=== PATIENT | male | born 1975 | race Caucasian/White ===

== ENCOUNTER 2018-07-19 06:58 | Emergency (ER) | payer SELFPAY ==
[2018-07-19 07:03] VITALS: BP 130/92; PULSE 78; RESP 16; TEMP 36.5; O2SAT 99
--- NOTE | 2018-07-19 07:14 | W.ED.GENAD ---
Discharge Plan Disposition Patient Disposition: HOME Condition: Stable Discharge Details Chief Complaint: RespSymp Clinical Impression: Fever, URI (upper respiratory infection), Cough Primary Care Provider: Stephanie Fish ED Provider: Ruth Adams Home Meds and New Rx's Prescriptions: New doxycycline hyclate 100 mg tablet 100 mg PO BID 7 Days Qty: 14 RF: 0 Continue lisinopril 5 MG tablet 10 mg PO HS RF: 0 ibuprofen 600 MG tablet 600 mg PO Q6H PRN PRNQty: 60 RF: 0 acetaminophen [Mapap Extra Strength] 500 MG tablet 1,000 mg PO Q6H PRN PRNQty: 30 RF: 1 aspirin [Extra Strength Margaret] 500 MG tablet 500 mg PO DIRECTED PRNRF: 0 Discharge Instructions Instructions: Fever in Adults (ED), Upper Respiratory Infection (ED), Acute Cough (ED) Additional Instructions: Drink plenty of fluids and get plenty of rest. Alternate Tylenol and Motrin as needed and directed for pain. Try [id number] cough and cold medicine as needed and directed. If you have no relief in symptoms in the next 2 days, you may start the antibiotics. Follow-up with your primary care doctor in 1 week for reevaluation. Return to the emergency department immediately for any worsening or new concerning symptoms. Discharge Data Discharge Physician: Ruth Adams Medical Decision Making 42 yo M with a history of hypertension who presents with fever, rhinorrhea with clear discharge, and cough with yellow white sputum for the past 3 days. Afebrile here. Patient appears nontoxic. Speaking in full sentences and in no acute respiratory distress. Normal ENT exam. Lungs clear to auscultation. Discussed with patient that his symptoms are likely viral in nature and recommend symptomatic treatment with Tylenol, Motrin, [id number] cough and cold medicine. States his has the same symptoms and she was recently given an antibiotic. Discussed that if his symptoms do not improve or worsen over the next 2-3 days, he may start the antibiotics. He was instructed to follow-up with his primary care doctor in 1 week for reevaluation and return here if worse. HPI General Mode of arrival: ambulatory. Date/Time Provider Initiated Documentation: 07/19/18 07:03. Limitations to Documentation: no limitations. Information obtained by: patient. HPI Narrative: Patient is a 42-year-old male who presents to the ED with a complaint of runny nose, cough, and fevers for the past 3 days. Patient states his nasal discharge has been clear and his sputum has been yellow and white. Patient states he coughed once yesterday and it was blood-tinged but not since then. T-max of 103 last night. States he has been alternating Tylenol and Motrin for fever and taking Coricidin [id number] for his cold symptoms. States his was recently diagnosed with bronchitis and started on an antibiotic. Patient denies sore throat, chest pain or shortness of breath. Past medical history: HTN Surgical history: Inguinal hernia repair Social history: denies tobacco, alcohol or drugs Meds: See list Allergies: PCN Related Data Home Medications Medication Instructions Recorded Confirmed lisinopril 10 mg PO HS 02/21/13 11/22/16 aspirin [Extra Strength Margaret] 500 mg PO DIRECTED PRN 10/28/16 07/19/18 acetaminophen [Mapap Extra 1,000 mg PO Q6H PRN PRN #30 tab 11/22/16 07/19/18 Strength] ibuprofen 600 mg PO Q6H PRN PRN #60 tablet 11/22/16 07/19/18 doxycycline hyclate 100 mg PO BID 7 Days #14 tab 07/19/18 Previous Rx's Medication Instructions Recorded acetaminophen [Mapap Extra 1,000 mg PO Q6H PRN PRN #30 tab 11/22/16 Strength] ibuprofen 600 mg PO Q6H PRN PRN #60 tablet 11/22/16 doxycycline hyclate 100 mg PO BID 7 Days #14 tab 07/19/18 Allergies Allergy/AdvReac Type Severity Reaction Status Date / Time Penicillins AdvReac Intermediate Skin Rash Unverified 07/19/18 07:14 General Stated Complaint: RespSymp ZOILA: 4 Review of Systems Review of Systems All systems reviewed & are unremarkable except as noted in HPI and below Constitutional Reports as per HPI, Denies chills and Reports fever(s) Eyes Denies blurry vision ENT Denies dizziness, Reports nasal discharge, Denies sore throat and Denies throat swelling Cardiovascular Denies chest pain and Denies dyspnea Respiratory Reports cough and Denies dyspnea Gastrointestinal Denies abdominal pain, Denies diarrhea and Denies vomiting Genitourinary Denies hematuria and Denies dysuria Musculoskeletal Denies back pain and Denies numbness Integumentary/Breasts Denies lesions and Denies rash Neurologic Denies dizziness and Denies numbness Allergic/Immunologic Denies throat swelling [facility] Medical History Hypertension Impaired fasting glucose Right inguinal hernia Social History Smoking/Tobacco Use Status: Never Surgical History Repair of inguinal hernia (11/22/16) Exam Const General: cooperative and healthy appearing Orientation: alert and awake HENMT Head: normal to inspection Ears: hearing grossly normal bilaterally, external ears normal and TM's normal bilaterally General nose exam: external nose normal Face and sinus: normal facial exam and sinuses nontender Mouth: oral mucosae normal Throat: posterior oropharynx normal Eyes General: appearance normal, both eyes and all related structures Eyelids: eyelids normal EOM: EOM intact bilaterally Neck Neck: normal visual inspection Lymphatic: no lymphadenopathy noted Chest Chest: normal inspection of the chest Resp Effort & Inspection: normal respiratory effort and able to speak in complete sentences Auscultation: clear to auscultation bilaterally Cardio Rate: regular rate Rhythm: regular rhythm GI Inspection: normal to inspection Skin General skin exam: no rashes or lesions noted Neuro General: alert and awake Cognition: normal cognition Speech: speech normal Gait: normal gait Motor: muscle tone normal throughout Sensory Exam: no sensory deficits noted Extrem General: full ROM Psych Appearance: grossly normal Mental Status: mental status grossly normal Speech and Movement: speech and movement normal Affect: normal affect Thought Process: normal Course Vital Signs Temperature 97.7 F 07/19/18 07:03 Pulse 78 07/19/18 07:03 Respiratory Rate 16 07/19/18 07:03 Blood Pressure 130/92 H 07/19/18 07:03 Pulse Oximetry 99 07/19/18 07:03 Temperature 97.7 F 07/19/18 07:03 Temperature Source Temporal Artery Scan 07/19/18 07:03 Pulse 78 07/19/18 07:03 Respiratory Rate 16 07/19/18 07:03 Respiratory Effort Non-Labored 07/19/18 07:09 Respiratory Depth Normal 07/19/18 07:09 Blood Pressure 130/92 H 07/19/18 07:03 Blood Pressure Position Sitting 07/19/18 07:03 Pulse Oximetry 99 07/19/18 07:03 Oxygen Delivery Method Room Air 07/19/18 07:03 Oxygen Flow Rate 0 07/19/18 07:03 Pain Level 0 07/19/18 07:03
--- NOTE | 2018-07-19 07:18 | ED.GENADUL_ITS ---
Discharge Plan Disposition Patient Disposition: HOME Condition: Stable Discharge Details Chief Complaint: RespSymp Clinical Impression: Fever, URI (upper respiratory infection), Cough Primary Care Provider: Stephanie Fish ED Provider: Ruth Adams Home Meds and New Rx's Prescriptions: New doxycycline hyclate 100 mg tablet 100 mg PO BID 7 Days Qty: 14 RF: 0 Continue lisinopril 5 MG tablet 10 mg PO HS RF: 0 ibuprofen 600 MG tablet 600 mg PO Q6H PRN PRNQty: 60 RF: 0 acetaminophen [Mapap Extra Strength] 500 MG tablet 1,000 mg PO Q6H PRN PRNQty: 30 RF: 1 aspirin [Extra Strength Margaret] 500 MG tablet 500 mg PO DIRECTED PRNRF: 0 Discharge Instructions Instructions: Fever in Adults (ED), Upper Respiratory Infection (ED), Acute Cough (ED) Additional Instructions: Drink plenty of fluids and get plenty of rest. Alternate Tylenol and Motrin as needed and directed for pain. Try over-the- counter cough and cold medicine as needed and directed. If you have no relief in symptoms in the next 2 days, you may start the antibiotics. Follow-up with your primary care doctor in 1 week for reevaluation. Return to the emergency department immediately for any worsening or new concerning symptoms. Discharge Data Discharge Physician: Ruth Adams Medical Decision Making 42 yo M with a history of hypertension who presents with fever, rhinorrhea with clear discharge, and cough with yellow white sputum for the past 3 days. Afebrile here. Patient appears nontoxic. Speaking in full sentences and in no acute respiratory distress. Normal ENT exam. Lungs clear to auscultation. Discussed with patient that his symptoms are likely viral in nature and recommend symptomatic treatment with Tylenol, Motrin, [id number] cough and cold medicine. States his has the same symptoms and she was recently given an antibiotic. Discussed that if his symptoms do not improve or worsen over the next 2-3 days, he may start the antibiotics. He was instructed to follow-up with his primary care doctor in 1 week for reevaluation and return here if worse. HPI General Mode of arrival: ambulatory . Date/Time Provider Initiated Documentation: 07/19/18 07:03 . Limitations to Documentation: no limitations . Information obtained by: patient . HPI Narrative: Patient is a 42-year-old male who presents to the ED with a complaint of runny nose, cough, and fevers for the past 3 days. Patient states his nasal discharge has been clear and his sputum has been yellow and white. Patient states he coughed once yesterday and it was blood-tinged but not since then. T-max of 103 last night. States he has been alternating Tylenol and Motrin for fever and taking Coricidin [id number] for his cold symptoms. States his was recently diagnosed with bronchitis and started on an antibiotic. Patient denies sore throat, chest pain or shortness of breath. Past medical history: HTN Surgical history: Inguinal hernia repair Social history: denies tobacco, alcohol or drugs Meds: See list Allergies: PCN Related Data Home Medications Medication Instructions Recorded Confirmed lisinopril 10 mg PO HS 02/21/13 11/22/16 aspirin [Extra Strength Margaret] 500 mg PO DIRECTED PRN 10/28/16 07/19/18 acetaminophen [Mapap Extra 1,000 mg PO Q6H PRN PRN #30 tab 11/22/16 07/19/18 Strength] ibuprofen 600 mg PO Q6H PRN PRN #60 tablet 11/22/16 07/19/18 doxycycline hyclate 100 mg PO BID 7 Days #14 tab 07/19/18 Previous Rx's Medication Instructions Recorded acetaminophen [Mapap Extra 1,000 mg PO Q6H PRN PRN #30 tab 11/22/16 Strength] ibuprofen 600 mg PO Q6H PRN PRN #60 tablet 11/22/16 doxycycline hyclate 100 mg PO BID 7 Days #14 tab 07/19/18 Allergies Allergy/AdvReac Type Severity Reaction Status Date / Time Penicillins AdvReac Intermediate Skin Rash Unverified 07/19/18 07:14 General Stated Complaint: RespSymp ZOILA: 4 Review of Systems Review of Systems All systems reviewed & are unremarkable except as noted in HPI and below Constitutional Reports as per HPI, Denies chills and Reports fever(s) Eyes Denies blurry vision ENT Denies dizziness, Reports nasal discharge, Denies sore throat and Denies throat swelling Cardiovascular Denies chest pain and Denies dyspnea Respiratory Reports cough and Denies dyspnea Gastrointestinal Denies abdominal pain, Denies diarrhea and Denies vomiting Genitourinary Denies hematuria and Denies dysuria Musculoskeletal Denies back pain and Denies numbness Integumentary/Breasts Denies lesions and Denies rash Neurologic Denies dizziness and Denies numbness Allergic/Immunologic Denies throat swelling [facility] Medical History Hypertension Impaired fasting glucose Right inguinal hernia Social History Smoking/Tobacco Use Status: Never Surgical History Repair of inguinal hernia (11/22/16) Exam Const General: cooperative and healthy appearing Orientation: alert and awake HENMT Head: normal to inspection Ears: hearing grossly normal bilaterally, external ears normal and TM's normal bilaterally General nose exam: external nose normal Face and sinus: normal facial exam and sinuses nontender Mouth: oral mucosae normal Throat: posterior oropharynx normal Eyes General: appearance normal, both eyes and all related structures Eyelids: eyelids normal EOM: EOM intact bilaterally Neck Neck: normal visual inspection Lymphatic: no lymphadenopathy noted Chest Chest: normal inspection of the chest Resp Effort & Inspection: normal respiratory effort and able to speak in complete sentences Auscultation: clear to auscultation bilaterally Cardio Rate: regular rate Rhythm: regular rhythm GI Inspection: normal to inspection Skin General skin exam: no rashes or lesions noted Neuro General: alert and awake Cognition: normal cognition Speech: speech normal Gait: normal gait Motor: muscle tone normal throughout Sensory Exam: no sensory deficits noted Extrem General: full ROM Psych Appearance: grossly normal Mental Status: mental status grossly normal Speech and Movement: speech and movement normal Affect: normal affect Thought Process: normal Course Vital Signs Temperature 97.7 F 07/19/18 07:03 Pulse 78 07/19/18 07:03 Respiratory Rate 16 07/19/18 07:03 Blood Pressure 130/92 H 07/19/18 07:03 Pulse Oximetry 99 07/19/18 07:03 Temperature 97.7 F 07/19/18 07:03 Temperature Source Temporal Artery Scan 07/19/18 07:03 Pulse 78 07/19/18 07:03 Respiratory Rate 16 07/19/18 07:03 Respiratory Effort Non-Labored 07/19/18 07:09 Respiratory Depth Normal 07/19/18 07:09 Blood Pressure 130/92 H 07/19/18 07:03 Blood Pressure Position Sitting 07/19/18 07:03 Pulse Oximetry 99 07/19/18 07:03 Oxygen Delivery Method Room Air 07/19/18 07:03 Oxygen Flow Rate 0 07/19/18 07:03 Pain Level 0 07/19/18 07:03
== END 2018-07-19 07:37 | disposition home or self-care (01) ==
PROVIDERS: Emergency Provider Physician Assistant; PCP Family Medicine
DX: R50.9 Fever, unspecified (principal); J06.9 Acute upper respiratory infection, unspecified; R05 Cough; I10 Essential (primary) hypertension
CPT/HCPCS: 99283

== ENCOUNTER 2019-09-18 18:59 | Emergency (ER) | payer OTHER, SELFPAY ==
[2019-09-18 19:09] VITALS: BP 127/91; PULSE 86; RESP 18; TEMP 36.6; O2SAT 98
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
--- NOTE | 2019-09-18 20:51 | DI.VRAD_ITS ---
PROCEDURE INFORMATION: Exam: XR Chest, 2 Views Exam date and time: 09/18/2019 8:44 PM Age: 44 years old Clinical indication: Chest pain; Type not specified; Additional info: Struck with tailgate of truck TECHNIQUE: Imaging protocol: XR of the chest Views: 2 views. COMPARISON: No relevant prior studies available. FINDINGS: Lungs: Left basilar streaky opacity consistent with atelectasis. Lungs are otherwise clear. Pleural space: Unremarkable. No pleural effusion. No pneumothorax. Heart/Mediastinum: Unremarkable. No cardiomegaly. Bones/joints: Unremarkable. IMPRESSION: No acute cardiopulmonary process. Dictated and Authenticated by: Agus Ace MD. Ordering:LOI Capellan MD
[2019-09-18] MEDS: Omnipaque 350 MG/ML 100 ML BTL IJ (22:30)
--- NOTE | 2019-09-18 22:31 | DI.CT_ITS ---
EXAM: CT CHEST/ABD/PEL W CLINICAL HISTORY: pain, crushed b/w truck and tailgate r/o trauma TECHNIQUE: COMPARISON: No exams were available for comparison FINDINGS: CT examination of the chest abdomen and pelvis was performed with bolus infusion of 100 cc of Omnipaq ue 350. No fracture seen involving the bony thorax. No mediastinal hematoma or vascular injury. Heather ngs are clear with this mild bibasilar atelectasis or scarring. Tracheo bronchial tree appears intac t. No pleural effusion. No pneumothorax. No adenopathy. Left L1 transverse process fracture noted. No other fracture identified on scanning of the abdomen p kenn. No vascular injury identified on scanning of the abdomen pelvis. Adrenals and kidneys are unremarkab le except for left renal cysts. No evidence of renal cortical injury. Poorly defined area of decrea sed attenuation involving left hepatic lobe is suspicious for contusion. No gross Jackie hepatic fluid collection but there is moderate amount of fluid in the pelvis. Spleen appears normal. No focal ivan wel pathology identified. Pancreas appears normal. Gallbladder and bile ducts are unremarkable. Mi ld enlargement portal lymph nodes, measuring up to about 15 millimeters in diameter. IMPRESSION: indeterminate findings involving left hepatic lobe, this may represent contusion. Free fluid noted in the pelvis. Follow-up scanning recommended. Nondisplaced fracture transverse process of L1 vertebra on the left.
--- NOTE | 2019-09-18 23:03 | DI.VRAD_ITS ---
PROCEDURE INFORMATION: Exam: CT Chest With Contrast Exam date and time: 09/18/2019 9:41 PM Age: 44 years old Clinical indication: Pain; Other: Back; Prior surgery; Surgery date: 6+ months; Surgery type: Right hernia repair; Additional info: Pain, crushed b/w truck and tailgate, R/O trauma TECHNIQUE: Imaging protocol: Computed tomography of the chest with intravenous contrast. Radiation optimization: All CT scans at this facility use at least one of these dose optimization techniques: automated exposure control; mA and/or kV adjustment per patient size (includes targeted exams where dose is matched to clinical indication); or iterative reconstruction. Contrast material: [id number]; Contrast volume: 100 ml; Contrast route: IV RT FOREARM 18G; COMPARISON: No relevant prior studies available. FINDINGS: Lungs: Bibasilar atelectasis. Lungs are otherwise clear. Pleural space: Unremarkable. No pneumothorax. No pleural effusion. Heart: The heart is not enlarged. Aorta: The aorta is normal. Lymph nodes: No adenopathy. Bones/joints: No acute fracture in the chest. Thoracic vertebral heights are maintained. Soft tissues: Unremarkable. IMPRESSION: No acute abnormality in the chest. PROCEDURE INFORMATION: Exam: CT Abdomen And Pelvis With Contrast Exam date and time: 09/18/2019 9:41 PM Age: 44 years old Clinical indication: Pain; Other: Back; Prior surgery; Surgery date: 6+ months; Surgery type: Right hernia repair; Additional info: Pain, crushed b/w truck and tailgate, R/O trauma TECHNIQUE: Imaging protocol: Computed tomography of the abdomen and pelvis with intravenous contrast. Radiation optimization: All CT scans at this facility use at least one of these dose optimization techniques: automated exposure control; mA and/or kV adjustment per patient size (includes targeted exams where dose is matched to clinical indication); or iterative reconstruction. Contrast material: [id number]; Contrast volume: 100 ml; Contrast route: IV RT FOREARM 18G; COMPARISON: No relevant prior studies available. FINDINGS: Liver: Nonspecific heterogeneous region in the left hepatic lobe without discrete lesion may represent focal fat. Scattered subcentimeter hypodensities throughout the liver are too small to characterize but statistically likely to represent benign cysts. Gallbladder and bile ducts: The gallbladder is normal. Pancreas: The pancreas is normal. Spleen: The spleen is normal. Adrenals: The adrenal glands are normal. Kidneys and ureters: Normal. No hydronephrosis. Stomach and bowel: Unremarkable. No obstruction. No mucosal thickening. Appendix: A normal appendix is identified. Intraperitoneal space: Moderate volume free fluid in the pelvis. Vasculature: Unremarkable. No abdominal aortic aneurysm. Lymph nodes: Nonspecific prominent connie hepatis lymph nodes and surrounding fat stranding Bladder: The bladder is normal. Reproductive: Unremarkable as visualized. Bones/joints: Nondisplaced fracture of the L1 left transverse process. Lumbar vertebral body heights are maintained and in normal alignment. Soft tissues: Small fat containing ventral hernia. Status post right inguinal hernia repair. IMPRESSION: 1. Nondisplaced fracture of the L1 left transverse process. 2. Small-moderate volume free fluid in the pelvis of unclear etiology. There are several adjacent loops of large and small bowel which appear grossly intact. however they are decompressed which limits evaluation. 3. Nonspecific prominent connie hepatis lymph nodes with surrounding fat stranding. Dictated and Authenticated by: Agus Ace MD. Ordering:LOI Capellan MD
--- NOTE | 2019-09-19 05:58 | NUR.NOTE ---
REFERRAL FAXED TO DR. SHAW OFFICE FOR PCP FOLLOW UP CARE FOR ECG CHANGES AND L1 TRANSVERSE PROCESS FRACTURE REQUESTED BY ALAINA Barraza Nursing Note: FAX [phone]
--- NOTE | 2019-09-19 09:58 | W.ED.FU ---
Received call from radiologist Dr. Verdin regarding read of ct chest abdomen and pelvis read by virtual radiology yesterday. It was noted yesterday the patient had free fluid in the pelvis. Dr. Verdin states that this could be consistent with a contusion versus laceration in the setting of trauma. Patient was noted to have an L1 transverse process fracture which was seen on yesterday's report as well. Dr. Verdin is recommending repeat CT scan in 24 to 48 hours from for scan. Patient called at home and he denies any abdominal pain. He states he has had some back pain consistent with his L1 fracture. He was advised to return to the ER today for further evaluation and for possible rescan. As he has no abdominal pain, this is reassuring.
== END 2019-09-19 00:10 | disposition home or self-care (01) ==
PROVIDERS: Emergency Provider Physician Assistant; PCP Family Medicine
DX: S32.019A Unspecified fracture of first lumbar vertebra, initial encounter for closed fracture (principal); W22.8XXA Striking against or struck by other objects, initial encounter; Y99.0 Civilian activity done for income or pay
CPT/HCPCS: 74177; 80053; 93005; 99285; 71046; 71260; 85025; 93010; 99284; J3490

== ENCOUNTER 2019-09-19 11:35 | Emergency (ER) | payer OTHER, SELFPAY ==
[2019-09-19 11:39] VITALS: BP 137/100; PULSE 77; RESP 14; TEMP 36.7; O2SAT 98
--- NOTE | 2019-09-19 11:54 | ED.GENADUL_ITS ---
Discharge Plan Disposition Patient Disposition: HOME Condition: Stable Discharge Details Chief Complaint: Abd Prob Clinical Impression: Blunt trauma Primary Care Provider: Stephanie Fish ED Provider: Conrad Mondragon Home Meds and New Rx's Prescriptions: Continued ibuprofen 600 MG tablet 600 mg PO Q6H PRN PRNQty: 60 RF: 0 acetaminophen [Mapap Extra Strength] 500 MG tablet 1,000 mg PO Q6H PRN PRNQty: 30 RF: 1 Extra Strength Margaret 500 MG tablet 500 mg PO PRN PRNRF: 0 tramadol [Ultram] 50 mg tablet 50 mg PO Q8H PRN (Reason: pain) Qty: 5 RF: 0 Discharge Instructions Additional Instructions: continue with tylenol and ibuprofen follow up with your primary care provider within 1 week if you have worsening pain or difficulty breathing return to the emergency department Medical Decision Making 44 yo male who was seen yesterday after he was working in a dump truck and a piece of wood pinned him against the back of a wall. No loc and no headache or neck pain and had ct chest/abd/pelvis showing l1 fracture and on overread todayhad ?hepatic contusion was so was told to come back. Patient has mild lower back pain but otherwise feels well, had chest pain last night none now and no abdominal tenderness. Given ct findings and discussion with Dr. Verdin will repeat ct abd/pelvis pt's labs and imaging show no new conerning findings, likely hepatic fat pad. has no pain, hd stable, will d/c home Differential Diagnosis Differential Diagnosis: liver contusion, l1 transverse process fx Imaging Data Radiologic Study: Attestation: I personally reviewed and interpreted this imaging study as follows: Imaging: CT Scan Radiologist's impression: IMPRESSION: Findings most consistent with focal fat in left hepatic lobe due to stable appearance as described above. Clinical follow-up recommende Lab Data Lab results reviewed: Yes I reviewed the patient's lab results. ECG Data Attestation: I personally reviewed and interpreted this ECG (s) as follows: Prior ECG tracings: not available for review Interpretation: sinus rhythm, rate of 81, pr 142, qtc 390 HPI General Mode of arrival: ambulatory . Date/Time Provider Initiated Documentation: 09/19/19 11:35 . Limitations to Documentation: no limitations . Information obtained by: patient . History of Present Illness 44 year old M presents to the emergency department with the chief complaint of back pain, described as mild, Quality is described as aching, and it has been constant. No relieving factors improve symptom(s), No exacerbating factors reported . Patient did receive the following treatments prior to arrival, none Related Data Home Medications Medication Instructions Recorded Confirmed Extra Strength Margaret 500 mg PO PRN PRN 10/28/16 09/19/19 acetaminophen [Mapap Extra 1,000 mg PO Q6H PRN PRN #30 tab 11/22/16 09/19/19 Strength] ibuprofen 600 mg PO Q6H PRN PRN #60 tablet 11/22/16 09/19/19 tramadol [Ultram] 50 mg PO Q8H PRN #5 tab 09/18/19 09/19/19 Previous Rx's Medication Instructions Recorded acetaminophen [Mapap Extra 1,000 mg PO Q6H PRN PRN #30 tab 11/22/16 Strength] ibuprofen 600 mg PO Q6H PRN PRN #60 tablet 11/22/16 tramadol [Ultram] 50 mg PO Q8H PRN #5 tab 09/18/19 Allergies Allergy/AdvReac Type Severity Reaction Status Date / Time Penicillins AdvReac Intermediate Skin Rash Unverified 09/19/19 12:18 General Stated Complaint: Abd Prob ZOILA: 3 Review of Systems All systems reviewed & are unremarkable except as noted in HPI and below Constitutional Constitutional: Denies chills, Denies fever(s) and Denies weakness Cardiovascular Cardiovascular: Denies dyspnea Respiratory Respiratory: Denies cough and Denies dyspnea Gastrointestinal Gastrointestinal: Denies abdominal pain, Denies nausea and Denies vomiting Musculoskeletal Musculoskeletal: Denies joint swelling Integumentary/Breasts Skin/Breast: Denies rash Neurologic Neurologic: Denies weakness [facility] Surgical History (Updated 06/26/18 @ 14:35 by [employer] [place]) Repair of inguinal hernia (11/22/16) right direct and indirect Social History Smoking/Tobacco Use Status: Never Alcohol Intake: current Alcohol Intake frequency: a few times a month Drug use: Never Substance use type: does not use Do you feel safe at home: Yes Do you feel safe in your relationship?: Yes Exam Const General: no acute distress Orientation: alert HENMT Head: normal to inspection Ears: external ears normal General nose exam: external nose normal Mouth: moist mucous membranes Eyes General: appearance normal, both eyes and all related structures Neck Neck: normal visual inspection Resp Effort & Inspection: normal respiratory effort and able to speak in complete sentences Cardio Rate: regular rate GI Palpation: soft and nontender Skin General skin exam: no rashes or lesions noted Neuro General: alert and oriented x3 Extrem General: normal to inspection Psych Mental Status: mental status grossly normal Course Vital Signs Vital signs: Vital Signs Temperature 36.7 C 09/19/19 11:39 Pulse 77 09/19/19 11:39 Respiratory Rate 14 09/19/19 11:39 Blood Pressure 137/100 H 09/19/19 11:39 Pulse Oximetry 98 09/19/19 11:39 Temperature 36.7 C 09/19/19 11:39 Temperature Source Skin 09/19/19 11:39 Pulse 77 09/19/19 11:39 Respiratory Rate 14 09/19/19 11:39 Blood Pressure 137/100 H 09/19/19 11:39 Pulse Oximetry 98 09/19/19 11:39 Oxygen Delivery Method Room Air 09/19/19 11:39 Oxygen Flow Rate 0 09/19/19 11:39 Pain Level 4 09/19/19 11:39
[2019-09-19 12:13] LABS: Abs Immature Grans 0.01 k/cumm (0.0-0.09); Absolute Basophil Count 0.02 k/cumm (0.0-0.2); Absolute Eosinophil Count 0.06 k/cumm (0.0-0.7); Absolute Lymphocyte Count 1.12 k/cumm (1.2-3.4); Absolute Monocyte Count 0.83 k/cumm (0.11-0.7); Basophils % 0.3; Eosinophils % 0.8; HCT 43.4 % (40.0-50.0); HGB 14.7 g/dL (13.5-17.5); Immature Grans % 0.1 %; Lymphocytes % 14.7; Mean Corp. HGB Concentration 33.9 g/dL (32.0-36.0); Mean Corpuscular Hemoglobin 30.8 pg (27.0-33.0); Mean Corpuscular Volume 90.8 fL (80-95); Mean Platelet Volume 10.6 fL (8.0-11.0); Monocytes % 10.9; Neutrophils % 73.2; Platelet Count 260 x1000/uL (130-400); RBC 4.78 m/cumm (4.50-6.00); RBC Distribution Width 12.6 % (11.8-14.1); White Blood Cell Count 7.64 k/cumm (4.4-10.8)
[2019-09-19 12:25] LABS: Lipase 304 U/L (73-393)
[2019-09-19 12:27] LABS: Troponin I < 0.05 ng/Ml (<0.06)
[2019-09-19 12:31] LABS: PTT Activated 24.2 sec (21.0-31.4); Prothrombin Time 10.1 sec (9.3-11.0)
--- NOTE | 2019-09-19 12:31 | DI.CT_ITS ---
EXAM: CT ABDOMEN PELVIS W CLINICAL HISTORY: follow up on abdominal ct from yesterday, trauma TECHNIQUE: COMPARISON: CT CHEST/ABD/PEL W from 09/18/2019 FINDINGS: CT examination of the abdomen and pelvis was performed with bolus infusion of 100 cc of Omnipaque 350 . Examination is compared with examination 10:30 p.m. September 18. Previously noted free fluid in t he pelvis is unchanged or decreased on today's examination. An area of irregular decreased attenuati on in left hepatic lobe adjacent to the falciform ligament is unchanged and is most likely to represe nt focal fat. No subcapsular hematoma. No other significant change. IMPRESSION: Findings most consistent with focal fat in left hepatic lobe due to stable appearance as described ab ove. Clinical follow-up recommended.
[2019-09-19] MEDS: Omnipaque 350 MG/ML 100 ML BTL IV (12:33)
[2019-09-19] MEDS: Normal Saline - Diluent 50 ML VIAL IV (12:34)
[2019-09-19] MEDS: Normal Saline 1,000 ML 1000 ML IV (13:00)
[2019-09-19 13:04] LABS: Bilirubin Negative (Negative); Blood Negative (Negative); Clarity Clear (Clear); Glucose Negative (Negative); Ketones Negative (Negative); Leukocyte Esterase Negative (Negative); Nitrite Negative (Negative); Urobilinogen 0.2 EU/dL (Up TO 0.2); pH 7.5 (5-8)
[2019-09-19 13:46] VITALS: BP 147/93; PULSE 82; RESP 15; TEMP 36.6; O2SAT 97
== END 2019-09-19 13:58 | disposition home or self-care (01) ==
PROVIDERS: Emergency Provider Emergency Medicine; PCP Family Medicine
DX: M54.5 Low back pain (principal); R93.2 Abnormal findings on diagnostic imaging of liver and biliary tract; S32.018A Other fracture of first lumbar vertebra, initial encounter for closed fracture; W22.8XXA Striking against or struck by other objects, initial encounter; Y99.0 Civilian activity done for income or pay
CPT/HCPCS: 36415; 83690; 93005; 96360; 99285; 74177; 81003; 84484; 85025; 85610; 85730; 93010; 99283; J3490

== ENCOUNTER 2022-07-28 15:27 | Outpatient (REF) | payer OTHER, SELFPAY ==
[2022-07-28 15:55] LABS: Anion Gap 7.2 mmol/L (3-11); BUN 16 mg/dL (7-18); CO2 28.8 mmol/L (21.0-32.0); CREATININE 0.8 mg/dL (0.70-1.30); Calcium 9.5 mg/dL (8.5-10.1); Calculated LDL 146 mg/dL (<100); Chloride 101 mmol/L (98-107); Cholesterol 226 mg/dL (<200); Estimated GFR 109.85 (mL/min/1.73m2); Glucose 101 mg/dL (74-106); HDL Cholesterol 60 mg/dL (40-60); Potassium 4.2 mmol/L (3.5-5.1); Sodium 137 mmol/L (136-145); Triglyceride 103 mg/dL (<150)
[2022-07-28 16:04] LABS: Hemoglobin A1C 5.2 % (<5.7)
== END 2022-07-28 15:28 | disposition home or self-care (01) ==
LOC: NCHCN 15:27
PROVIDERS: PCP Family Medicine; Visit Provider Family Medicine
DX: I10 Essential (primary) hypertension (principal); R73.9 Hyperglycemia, unspecified; Z00.00 Encounter for general adult medical examination without abnormal findings
CPT/HCPCS: 80048; 80061; 83036

== ENCOUNTER → 2023-06-18 04:00 | Outpatient (CLI) | payer OTHER, SELFPAY ==
--- NOTE | 2023-06-18 | DI.RAD_ITS ---
Exam(s) XR KNEE RT 3V AP,LAT,IZABELA EXAM: XR KNEE RT 3V AP,LAT,IZABELA CLINICAL HISTORY: FELL, RT KNEE PAIN, M25.561. TECHNIQUE: 2D digital imaging was performed. Three views. COMPARISON: No exams were available for comparison FINDINGS: BONES: No acute fracture is present. No bony destructive lesion is seen. No significant degenerativ e changes. JOINTS: Joint spaces are well maintained. The knee is normally aligned. No joint effusion is seen. SOFT TISSUE: Normal. IMPRESSION: Unremarkable radiographs of the right knee. DATA REPOSITORY: RADIATION DOSE DELIVERED:
== END ==
PROVIDERS: PCP Family Medicine; Visit Provider Family Medicine
DX: M25.561 Pain in right knee (principal); W19.XXXA Unspecified fall, initial encounter
CPT/HCPCS: 73562

== ENCOUNTER 2024-05-06 09:07 | Outpatient (REF) | payer OTHER, SELFPAY ==
--- NOTE | 2024-05-06 09:29 | SKI_PTH ---
PATIENT: Mickey Gupta LOC: [facility] U#:[id number] AGE/SX: 48/M ROOM: RE05/06/[address]: Jarrell August MD : 1975 BED: DIS: 05/06/2024 SPEC #: [id number] RECD: 05/06/24 12:50 STATUS: SANCHEZ REQ #: [id number] HOLLEY: 05/06/24 09:[address]: Jarrell August DEPT: Surgical Specimen RECD BY: Leslie Padilla ENTERED: 05/06/24 12:53 SP TYPE: DONOVAN OTHR DR: Stephanie Fish Tissues: 1 - SKIN BIOPSY(SHAVE/PUNCH) Procedures: GROSS AND MICRO LEVEL 3 Comments: [id number]
== END 2024-05-06 09:08 | disposition home or self-care (01) ==
LOC: LBN 09:07
PROVIDERS: PCP Family Medicine; Referring Provider Surgery; Visit Provider Surgery
DX: D23.5 Other benign neoplasm of skin of trunk (principal)
CPT/HCPCS: 88304; 88305

== ENCOUNTER 2024-07-28 18:10 | Outpatient (REF) | payer OTHER, SELFPAY ==
[2024-07-28 16:11] LABS: ALT 52 U/L (16-63); AST 23 U/L (15-37); Albumin 4.6 g/dL (3.4-5.0); Alkaline Phosphatase 58 U/L (46-116); Anion Gap 7.9 mmol/L (3-11); BUN 14 mg/dL (7-18); Bilirubin, Total 1.05 mg/dL (0.2-1.0); CO2 30.1 mmol/L (21.0-32.0); CREATININE 0.7 mg/dL (0.70-1.30); Chloride 103 mmol/L (98-107); Estimated GFR 112.95 (mL/min/1.73m2); Glucose 100 mg/dL (74-106); Potassium 4.3 mmol/L (3.5-5.1); Sodium 141 mmol/L (136-145); Total Protein 7.6 g/dL (6.4-8.2)
[2024-07-28 17:37] LABS: Hemoglobin A1C 5.3 % (<5.7)
[2024-07-28 22:54] LABS: PSA, Screening 1.2 ng/mL (<=2.5)
[2024-07-29 11:00] LABS: Hepatitis C Ab w Rflx HCV PCR Negative (Negative)
[2024-07-29 11:15] LABS: HIV-1/2 Ag & Ab Screen Negative (Negative)
== END 2024-07-28 18:11 | disposition home or self-care (01) ==
LOC: NCHCN 18:10
PROVIDERS: PCP Family Medicine; Visit Provider Family Medicine
DX: Z00.00 Encounter for general adult medical examination without abnormal findings (principal); Z12.5 Encounter for screening for malignant neoplasm of prostate; I10 Essential (primary) hypertension; R73.03 Prediabetes
CPT/HCPCS: 80053; 84153; 86803; 87389; 83036

== ENCOUNTER 2024-12-01 07:05 | Day surgery (SDC) | payer OTHER, SELFPAY ==
--- NOTE | 2024-11-30 14:28 | W.PM.DSUDISC ---
Date of service: 12/01/24 Discharge Plan Disposition Patient Disposition: Home Condition: Good Discharge Details Reason For Visit: screening colonoscopy Attending Provider: Jarrell August Primary Care Provider: Stephanie Fish Home Meds and New Rx's Prescriptions: Continued lisinopril 20 mg tablet 20 mg PO DAILY Discontinued bisacodyl [Dulcolax (bisacodyl)] 5 mg tablet,delayed release (DR/EC) 5 mg PO ONCE Qty: 4 0RF Rx Instructions: Take per colonoscopy instructions provided by ordering providers office polyethylene glycol 3350 17 gram/dose powder 17 g PO ONCE Qty: 238 0RF Rx Instructions: Take per colonoscopy instructions provided by ordering providers office Discharge Instructions Instructions: Colon polyps Additional Instructions: Mickey, was very nice to see you today, and I hope you feel well after the procedure. Your prep was excellent negative everything fine. I did find, and remove a single polyp today. It was medium in size, but lacks any particularly worrisome features. I will send this off to the pathologist for their review since polyps 2, different types, and we use the information from the polyp analysis to guide the timing of future colonoscopies. Those results usually take a week or 2, but once we have them, my office will be in touch. If you need anything, or have any questions at all, please do not hesitate to ask. 1. If tolerated, consume a soft, low fiber diet for 1-2 days. 2. Do not drive, drink alcohol, operate machinery, make critical decisions, or do activities that require coordination or balance for 24 hours. 3. Because air was put into your colon during the procedure, expelling air from your rectum (passing gas or farting) is normal. 4. You may not have a bowel movement for 1-3 days because of the colonoscopy prep. This is normal. 5. Go directly to the emergency room if you notice any of the following: Develop chills (warm to touch), or if you have a thermometer and your temperature is above 101 Difficulty breathing or difficultly swallowing Persistent vomiting Severe abdominal pain, other than gas cramps Severe chest pain Black, tarry stools Any bleeding ? exceeding one tablespoon 6. Call your physician if the site where your intravenous was started becomes red, swollen, painful, and warm to touch. 7. Your physician has reviewed your pre-procedure medications. Please continue to take those medications as previously ordered. You will be given specific information/education regarding any changes to your medications before leaving. Stand Alone Forms: Anesthesia Discharge Inst., Dalia Araiza (DSU) Activity:: Activity as Tolerated Diet:: As Tolerated Discharge Orders Discharge Orders: Discharge Order (Routine); Ordered 11/30/24 Ordered By: Jarrell August DS: Diagnosis Discharge Diagnosis (1) Encounter for screening colonoscopy: Status: Acute Asessment and Plan: Follow-up on polypectomy results
--- NOTE | 2024-11-30 14:29 | W.COLOREPORT ---
Date of service: 12/01/24 Time of Service: Colonoscopy Report Date of procedure: 12/01/24 Pre-op diagnosis general: screening colonoscopy Post-op diagnosis procedure note: other (Rectal polyp) Procedure: colonoscopy with polypectomy Surgeon: Jarrell August Anesthesia Type: General:No Airway Estimated blood loss (mL): 5 Pathology: other (0.5 cm pedunculated rectal polyp) Complications: None Disposition: same day Indications: Mickey is a 49 year old man who needs a screening colonoscopy Prep: Miralax/Dulcolax Procedure Start Time: Procedure End Time: Retraction Time: 9 Findings: Rectal polyp Procedure Description: After the induction of monitored anesthetic care, and with the patient in left lateral decubitus position, I began by performing an external anorectal exam.? Perineum and skin were normal, as was the anal verge.? There was no evidence of external hemorrhoids.? Next, I performed a digital rectal exam.? I did not appreciate any abnormal findings.? Next, I advanced a colonoscope into the rectal vault.? I performed retroflexion.? This appeared normal.? Using insufflation, I then advanced the colonoscope beyond the rectal folds and into the sigmoid colon before advancing towards the cecum.? The quality of the prep was excellent.? The scope was noted to be in the cecum by identification of the ileocecal valve and appendiceal orifice.? I then began withdrawing the colonoscope using repeated irrigation as necessary for full evaluation of the colonic mucosa. ?Once the scope was withdrawn to the level of the rectum, great care was taken to examine portions of the rectal folds.? In the upper portion of the rectal vault was a 0.5 cm pedunculated rectal polyp. This was removed with cold snare polypectomy without any issues. Finally, the scope was withdrawn and the patient was brought to the same-day surgery recovery unit as the anesthetic wore off. ?The findings and instructions were shared with the patient prior to discharge. Freeman Bowel Prep Freeman Bowel Prep Right Colon: 3 Left Colon: 3 Transverse Colon: 3 Total Score: 9
[2024-12-01 07:52] VITALS: BP 140/106; PULSE 75; RESP 16; TEMP 36.3; O2SAT 99
[2024-12-01] MEDS: Lactated Ringers 1,000 ML 80 ML IV (08:06)
--- NOTE | 2024-12-01 08:30 | W.ANESPRE ---
General Info Date of Service Date Performed: 12/01/24 Height: 5 ft 8 in Weight: 81.4 kg Body Mass Index (BMI): 27.3 Surgical Procedure: Operation Date: 12/01/24 09:05 Proposed Procedure Side Surgeon doug August MD Meds Allergies and Home Medications Allergies Allergy/AdvReac Type Severity Reaction Status Date / Time Penicillins AdvReac Intermediate Skin Rash Unverified 12/01/24 07:52 Home Medication ?Medication ?Instructions ?Recorded lisinopril 20 mg tablet 20 mg PO DAILY 01/28/24 Current Visit Medications: Current Medications Generic Name Dose Route Start Last Admin Trade Name Freq PRN Reason Stop Dose Admin Ringer's Solution 1,000 mls @ 80 mls/hr 12/01/24 06:00 12/01/24 08:06 IV 12/01/24 23:59 80 mls/hr INFUSION SILVIA Administration IV Miscellaneous Supplies 1 each 12/01/24 06:00 Iv Access IV 12/01/24 23:59 DIRECTED SILVIA Ondansetron HCl 4 mg 11/30/24 14:30 Ondansetron 4 Mg/2 Ml Vial IVP 12/30/24 14:29 Q4H PRN PRN Nausea / Vomiting Sodium Chloride 0 ml 12/01/24 06:00 Normal Saline Flush 10 Ml Syr IV 12/01/24 23:59 PRN PRN Sodium Chloride 0 ml 12/01/24 06:00 Normal Saline 10 Ml Vial IJ 12/01/24 23:59 DIRECTED PRN Sterile Water 0 ml 12/01/24 06:00 Water,Injection,Sterile 10 Ml Vial IJ 12/01/24 23:59 DIRECTED PRN PFSH Active Problems Active Problems: Problem Status Onset Code Encounter for screening colonoscopy Acute Z12.11 Essential hypertension Acute I10 Sebaceous cyst Acute L72.3 Medical History Medical History Pain, joint, knee, right Family history of prostate cancer Hypertension Right inguinal hernia Impaired fasting glucose Surgical History Surgical History Repair of inguinal hernia (11/22/16) right direct and indirect Tobacco Smoking/Tobacco Use Status: Never Alcohol Alcohol Intake: current Alcohol intake frequency: a few times a month Substance Use Substance use: Never Substance use type: does not use Vital Signs and Lab Results Vital Signs Most Recent Vital Signs in EMR: Most Recent Vital Signs Temp Pulse Resp BP Pulse Ox 36.3 C L 75 16 140/106 H 99 12/01/24 07:52 12/01/24 07:52 12/01/24 07:52 12/01/24 07:52 12/01/24 07:52 Lab Results Blood Type / Crossmatch: No Data to Display Complete Blood Count: No Data to Display Complete Metabolic Panel: No Data to Display Liver Function Panel: No Data to Display Coagulation Panel: No Data to Display Cardiac Panel: No Data to Display Arterial Blood Gas: No Data to Display Venous Blood Gas: No Data to Display Pancreas Panel: No Data to Display Thyroid Panel: No Data to Display Infectious Disease: No Data to Display Blood Cultures: No Data to Display Toxicology Panel: No Data to Display Imaging and Studies Imaging and Studies Study information below may be from another EMR and interpreted by another provider. Please see original notes in EMR for more complete details. Echocardiogram Summary: 12/2012 EF 60-65% no significant valve issues Anesthesia Assessment and Plan Anesthesia History Personal History: No History of Anesthesia Complications Family History: No Family History of Anesthesia Complications Exercise Tolerance Exercise Tolerance: Metabolic Equivalents>4 Pertinent Negatives Pertinent Negatives: No Symptoms of GERD, No Major Cardiovascular Symptoms or Complaints, No Major Pulmonary Symptoms or Complaints and No History of CVA/TIA Cardiac & Pulmonary Exam Cardiac Exam: Normal S1/S2 Heart Sounds Pulmonary Exam: Clear Bilateral Breath Sounds Implantable Cardiac Device Does patient have a Pacemaker or an ICD?: No Airway Exam Known Difficult Airway: No Mallampati Class: 2 Mouth Opening: Normal (> 3cm) Thyromental Distance: Greater than 3 cm Neck Range of Motion: Full ROM Neck Circumference: Normal Teeth Condition: Generalized Poor Dentition (none loose or fragile per pt) ASA Classification ASA Score: ASA 2 Emergency Case?: No NPO Status NPO Status: NPO Clears >2 hours, Solids >8 hours Anesthesia Plan Resuscitation Status: Full Code Anesthesia Technique: General Anesthesia Airway Planned: Natural Airway Monitors Used: Standard Monitors Preoperative Comments:: Screening colonoscopy
[2024-12-01 08:36] VITALS: BMI 27.3
--- NOTE | 2024-12-01 08:55 | W.PREOPHP ---
Assessment and Plan Assessment and plan (1) Encounter for screening colonoscopy: Status: Acute Assessment and plan: We reviewed the role of screening colonoscopy as part of routine health maintenance. Mickey had the opportunity ask any questions. I think he has a good understanding of the risks and the benefits, and he was able to provide informed consent. We can proceed with colonoscopy as planned. History of Present Illness History of Present Illness Chief Complaint: Screening colonoscopy Narrative: Mickey is a 49-year-old male who is referred for screening colonoscopy. He has minimal risk factors. He denies any significant family history of colorectal cancer. Since his last office encounter, there have been no major interval changes with regards to the history. PFSH All Active Problems Encounter for screening colonoscopy (Acute) Essential hypertension (Acute) Sebaceous cyst (Acute) right side of chest never drained Medical History Pain, joint, knee, right Family history of prostate cancer Hypertension Right inguinal hernia Impaired fasting glucose Surgical History Repair of inguinal hernia (11/22/16) right direct and indirect Social History Smoking/Tobacco Use Status: Never Smoking risk assessment performed?: Yes Alcohol Intake: current Alcohol Intake frequency: a few times a month Drug use: Never Substance use type: does not use Housing: house Do you feel safe at home: Yes Do you feel safe in your relationship?: Yes Meds Allergies and Home Medications Allergies Allergy/AdvReac Type Severity Reaction Status Date / Time Penicillins AdvReac Intermediate Skin Rash Unverified 12/01/24 07:52 Home Medications ?Medication ?Instructions ?Recorded ?Confirmed ?Type lisinopril 20 mg tablet 20 mg PO DAILY 01/28/24 12/01/24 History Exam Const General: cooperative, healthy appearing and not in acute distress Neck Neck: normal visual inspection, no lymphadenopathy and supple Resp Effort & Inspection: normal respiratory effort Auscultation: clear to auscultation bilaterally Cardio Jugular venous pressure: no JVD Rate: regular rate Rhythm: regular rhythm Heart Sounds: S1 normal and S2 normal GI Inspection: normal to inspection Palpation: soft, no guarding, no hernias and nontender Percussion: normal to percussion Auscultation: normal bowel sounds Neuro General: patient alert, patient awake and patient oriented x3 Psych Appearance: grossly normal Results Last Vital Signs Temp 97.3 F L 12/01/24 07:52 Pulse 75 12/01/24 07:52 Resp 16 12/01/24 07:52 BP 140/106 H 12/01/24 07:52 Pulse Ox 99 12/01/24 07:52
--- NOTE | 2024-12-01 09:21 | BOWEL_PTH ---
PATIENT: Mickey Gupta LOC: [facility] U#:[id number] AGE/SX: 49/M ROOM: RE12/01/[address]: Jarrell August MD : 1975 BED: DIS: 12/01/2024 SPEC #: [id number] RECD: 12/01/24 12:20 STATUS: SANCHEZ REQ #: [id number] HOLLEY: 12/01/24 09:[address]: Jarrell August DEPT: Surgical Specimen RECD BY: Leslie Padilla ENTERED: 12/01/24 12:20 SP TYPE: Bowel OTHR DR: Stephanie Fish Tissues: 1 - BIOPSY BOWEL Procedures: GROSS AND MICRO LEVEL 4 Comments: [id number]
[2024-12-01 09:30] VITALS: BP 113/82; PULSE 74; RESP 16; TEMP 36.2; O2SAT 97
[2024-12-01 09:57] VITALS: BP 127/97; PULSE 64; RESP 17; TEMP 36.2; O2SAT 99
--- NOTE | 2024-12-01 10:24 | W.ANESPOSTOP ---
Postoperative Evaluation Date, Time and Location Date Performed: 12/01/24 Time Performed: 09:37 Patient Location: Day [facility] Unit Vital Signs Most Recent Imported Vital Signs: Most Recent Vital Signs Temp Pulse Resp BP Pulse Ox 36.2 C L 64 17 127/97 H 99 12/01/24 09:57 12/01/24 09:57 12/01/24 09:57 12/01/24 09:57 12/01/24 09:57 Pain Score Most Recent Pain Score: Most Recent Pain Score Pain Level 0 12/01/24 09:57 Assessment Mental Status: Awake (Alert & Oriented to Patient Baseline) Airway and Respiratory Function: Patent airway with normal (patient baseline) respiratory exam Cardiovascular Function: Hemodynamically Stable Hydration Status: Adequately Hydrated Nausea & Vomiting: No Nausea or Vomiting Pain: Pt. Denies Any Pain Peripheral Nerve Block: Patient did not receive a nerve block
== END 2024-12-01 10:06 | disposition home or self-care (01) ==
LOC: SUR 07:05
PROVIDERS: PCP Family Medicine; Visit Provider Surgery
PROC: 0DJD8ZZ Inspection of Lower Intestinal Tract, Via Natural or Artificial Opening Endoscopic (ICD-10-PCS; CPT 45378; principal; 2024-12-01 09:00)
DX: Z12.11 Encounter for screening for malignant neoplasm of colon (principal); D12.8 Benign neoplasm of rectum
CPT/HCPCS: 45385; 88305; J2003; J2704